=== PATIENT | female | born 1970 | race Caucasian/White ===

== ENCOUNTER 2017-04-10 13:22 | Emergency (ER) | payer OTHER ==
[~2017-04-10] VITALS: Ht 172.7 cm; Wt 104.3 kg
[~2017-04-10 13:22] MED LIST: ACCUNEB SO1.25 MG/1 INH; ADDERALL 20 MG20 M1 PO; ATIVAN1 MG PO; AZITHROMYCIN 2250 MG PO; BENTYL20 MG PO; COMPAZINE25 M1 RC; DEPAKOTE ER500 MG PO; LATUDA40 MG PO; PAXIL10 MG PO; TRILEPTAL300 MG PO; ULTRACET TABLE1 EACH PO; XANAX 0.5 MG0.5 MG PO; ZANTAC 150MG T150 M1; ZOFRAN ODT4 MG PO; [UNRECOGNIZED DRUG - OTHER]
[2017-04-10] MEDS ORDERED: REQUIP0.5 MG PO (13:32)
[2017-04-10] MEDS ORDERED: ZOLOFT50 MG PO (13:32)
[2017-04-10 15:51] VITALS: BP 150/79
== END 2017-04-10 15:53 | disposition home or self-care (01) ==
LOC: M.ERS 13:22
DX: S01.01XA Laceration without foreign body of scalp, initial encounter (principal); F17.200 Nicotine dependence, unspecified, uncomplicated; Z98.890 Other specified postprocedural states; Z90.710 Acquired absence of both cervix and uterus; Z88.1 Allergy status to other antibiotic agents; Z88.5 Allergy status to narcotic agent; Z88.8 Allergy status to other drugs, medicaments and biological substances; W10.8XXA Fall (on) (from) other stairs and steps, initial encounter; Y93.89 Activity, other specified; Y92.89 Other specified places as the place of occurrence of the external cause; Y99.8 Other external cause status

== ENCOUNTER 2018-03-16 08:13 | Emergency (ER) | payer OTHER ==
[~2018-03-16] VITALS: Ht 170.2 cm; Wt 74.8 kg
[~2018-03-16 08:13] MED LIST changes: +REQUIP0.5 MG PO; +ZOLOFT50 MG PO
[2018-03-16] MEDS ORDERED: QUETIAPINE FUM100 MG PO (08:22)
[2018-03-16] MEDS ORDERED: CYCLOBENZAPRINE5 MG PO (10:09)
[2018-03-16] MEDS ORDERED: NAPROSYN500 MG PO (10:09)
[2018-03-16] MEDS ORDERED: ACETAMINOPHEN-1 EAC1 PO (10:09)
[2018-03-16 10:19] VITALS: BP 135/85
== END 2018-03-16 10:20 | disposition home or self-care (01) ==
LOC: M.ERS 08:13
DX: M54.32 Sciatica, left side (principal); F17.200 Nicotine dependence, unspecified, uncomplicated; Z88.8 Allergy status to other drugs, medicaments and biological substances; Z88.1 Allergy status to other antibiotic agents; Z98.890 Other specified postprocedural states; Z90.710 Acquired absence of both cervix and uterus